=== PATIENT | female | born 1980 | race Caucasian/White ===

== ENCOUNTER 2018-12-16 13:00 | Emergency (ER) | payer MEDICAID ==
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
[2018-12-16] MEDS ORDERED: NORCO 5/325 MG PO ONE (17:15)
[2018-12-16] MEDS ORDERED: NORCO 5/325 MG ONE (17:24)
[2018-12-16 17:58] LABS: BASOPHIL % 0.2 % (0.0-0.4); Basophil (Absolute #) 0.03 (0-0.4); Eosinophil % 1.7 % (0.00-5.0); Eosinophil (Absolute #) 0.21 (0-0.5); Granulocyte Absolute (ANC) 7.93 (1.4-6.9); Granulocytes % 63.7 % (36.0-66.0); Hematocrit 41.3 % (35-47); Hemoglobin 13.7 gm/dl (12.0-16.0); Lymphocyte (Absolute #) 3.12 (1.0-4.6); Lymphocytes % 25.1 % (24.0-44.0); Mean Cell Volume 88.4 fl (78-100); Mean Corpuscular Hemoglobin 29.3 pg (26-32); Mean Corpuscular Hgb Concent. 33.2 g/dl (32-36); Mean Platelet Volume 11.7 fl (6-9.5); Monocyte (Absolute #) 1.16 (0.0-1.3); Monocytes % 9.3 % (0.0-12.0); Platelet Count 217 K/mm3 (150-450); Red Blood Count 4.67 M/mm3 (4.1-5.4); Red Cell Distribution Width 14.5 % (11.5-14.0); White Blood Count 12.5 K/mm3 (4.0-10.5)
[2018-12-16 18:22] VITALS: O2SAT 97
[2018-12-16 18:38] LABS: Appearance SLIGHTLY CLOUDY (CLEAR); Bilirubin NEGATIVE (NEGATIVE); Blood MODERATE Ery/ul (0-5); Epithelial Cells RARE /HPF (FEW); Glucose NEGATIVE (NEGATIVE); Ketones MODERATE (NEGATIVE); Leukocyte Esterase TRACE (NEGATIVE); Mucus SLIGHT /HPF (NEGATIVE); Nitrite NEGATIVE (NEGATIVE); Protein,Urine Dip NEGATIVE (Negative); RBC 0-2 /HPF (0-2); Specific Gravity 1.012 (1.005-1.025); Urobilinogen NEGATIVE mg/dL (0-1)
[2018-12-16 18:39] LABS: Bacteria NONE SEEN /HPF (NEGATIVE)
[2018-12-16] MEDS ORDERED: BACIGUENT PACKET TP ONE (18:53)
[2018-12-16] MEDS ORDERED: Adacel Vial IM ONE ×2 (18:53→18:59)
[2018-12-16] MEDS ORDERED: BACIGUENT PACKET ONE (18:56)
[2018-12-16 19:38] VITALS: BP 144/92; PULSE 84
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
== END 2018-12-16 19:37 | disposition home or self-care (01) ==
LOC: ED 13:00
DX: S09.93XA Unspecified injury of face, initial encounter (principal); V86.95XA Unspecified occupant of 3- or 4- wheeled all-terrain vehicle (ATV) injured in nontraffic accident, initial encounter; S20.319A Abrasion of unspecified front wall of thorax, initial encounter; T79.7XXA Traumatic subcutaneous emphysema, initial encounter; S00.511A Abrasion of lip, initial encounter; S20.219A Contusion of unspecified front wall of thorax, initial encounter; G50.1 Atypical facial pain; Y04.0XXA Assault by unarmed brawl or fight, initial encounter; I10 Essential (primary) hypertension; F41.8 Other specified anxiety disorders; J45.909 Unspecified asthma, uncomplicated
CPT/HCPCS: 36000; 36415; 70450; 70486; 71046; 71250; 72125; 81001; 85025; 87086; 90471; 90715; 99284; A9270-GY

== ENCOUNTER 2022-01-30 14:39 | Emergency (ER) | payer OTHER ==
[2022-01-30 14:54] VITALS: PULSE 122
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
[2022-01-30 15:48] VITALS: BP 142/83
[2022-01-30 16:33] VITALS: O2SAT 96
--- NOTE | 2022-01-30 16:33 | XRAY ---
Indication: Pain following fall. Comparison: None AP pelvis and 2 view right hip demonstrates mild lower lumbar degenerative changes. No other bony, articular, or soft tissue abnormalities.
--- NOTE | 2022-01-30 16:34 | XRAY ---
Indication: Pain following fall. Comparison: None 3 view right knee obtained. No bony, articular, or soft tissue abnormalities.
--- NOTE | 2022-01-30 16:35 | XRAY ---
Indication: Pain following fall. Comparison: None 3 view right ankle obtained. No bony, articular, or soft tissue abnormalities.
== END 2022-01-30 16:59 | disposition left against medical advice (07) ==
LOC: ED 14:39
DX: M25.551 Pain in right hip (principal); M25.561 Pain in right knee; M25.571 Pain in right ankle and joints of right foot; V28.9XXA Unspecified motorcycle rider injured in noncollision transport accident in traffic accident, initial encounter; Y92.410 Unspecified street and highway as the place of occurrence of the external cause; I10 Essential (primary) hypertension; Z79.899 Other long term (current) drug therapy; Z72.0 Tobacco use
CPT/HCPCS: 73502; 73562; 73610; 99283

== ENCOUNTER 2022-02-14 08:53 | Emergency (ER) | payer OTHER ==
[2022-02-14 09:08] VITALS: BP 136/96
[2022-02-14] MEDS ORDERED: Zofran 4 MG/2 ML VIAL ONE (09:22)
[2022-02-14] MEDS ORDERED: Sodium Chloride 0.9% 1000 ML 1,000 ML ONE (09:22)
[2022-02-14] MEDS ORDERED: Hydromorphone 1 mg/ml Injection ONE (09:22)
[2022-02-14] MEDS: Hydromorphone 1 mg/ml Injection IV ONE (09:24)
[2022-02-14] MEDS: Zofran 4 MG/2 ML VIAL IV ONE (09:24)
[2022-02-14] MEDS: Sodium Chloride 0.9% 1000 ML 1,000 ML IV STA (09:24)
--- NOTE | 2022-02-14 09:24 | ERPHSYRPT ---
- History of Present Illness Time Seen by Provider: 02/14/22 09:21 Historian: patient, family Patient Subjective Stated Complaint: PT states "I had a partial hysterectomy in july and this morning when I woke up, my belly really hurt. It feels like pressure on the inside. I also cannot remember when I had a bowel movement last." Triage Nursing Assessment: Pt presented alert and oriented X 3, skin pwd. Pt ambulates with an upright steady gait, able to speak in clear full sentences pt in no apaprent respiratory distress. Physician History: Patient is a 42-year-old white female who presents with severe abdominal pain. It woke her from sleep this morning at approximately 7 PM. She reports the pain is primarily in the suprapubic area and in the left flank she thought initially it was gas but then it got so bad she know she knew it was not flatulence. She cannot remember her last bowel movement she had some sweats with the pain but no fever or chills she has had some nausea and vomited twice. The pain is fairly constant but varies in intensity. Past medical history shows that she has had a partial hysterectomy in July and she had an exploratory for a suspected tubal many years ago. Timing/Duration: today Activities at Onset: sleep Quality: stabbing, throbbing Abdominal Pain Onset Location: LLQ, suprapubic, flank Pain Radiation: LLQ, flank Severity of Pain-Max: severe Severity of Pain-Current: severe Modifying Factors: Improves With: nothing Associated Symptoms: diaphoresis, nausea, vomiting Previous symptoms: no prior history Allergies/Adverse Reactions: Penicillins Allergy (Severe, Verified 12/16/18 18:55) anaphylaxis aspirin Allergy (Unknown, Verified 12/16/18 18:55) Home Medications: Glycopyrrolate 1 mg PO DAILY 01/30/22 [History] Hydroxyzine HCl 25 mg [Atarax 25 mg] 25 mg PO DAILY 01/30/22 [History] Omeprazole 20 mg PO DAILY 01/30/22 [History] Trazodone HCl 100 mg PO DAILY 01/30/22 [History] Hx Tetanus, Diphtheria Vaccination/Date Given: Yes (YES IN THE PAST 10 YEARS) Hx Influenza Vaccination/Date Given: No Hx Pneumococcal Vaccination/Date Given: No Immunizations Up to Date: Yes Travel Risk - International Travel Have you traveled outside of the country in past 3 weeks: No - Coronavirus Screening Are you exhibiting any of the following symptoms?: No Close contact with a COVID-19 positive Pt in past 14-21 Days: No - Vaccine Status Have you recieved a Covid-19 vaccination: Yes 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[employer] - Review of Systems Constitutional: No Fever, No Chills Eyes: No Symptoms Ears, Nose, & Throat: No Symptoms Respiratory: No Cough, No Dyspnea Cardiac: No Chest Pain, No Edema, No Syncope Abdominal/Gastrointestinal: Abdominal Pain, Nausea, Vomiting, No Diarrhea Genitourinary Symptoms: No Dysuria Musculoskeletal: No Back Pain, No Neck Pain Skin: No Rash Neurological: No Dizziness, No Focal Weakness, No Sensory Changes Psychological: No Symptoms Endocrine: No Symptoms All Other Systems: Reviewed and Negative - Past Medical History Pertinent Past Medical History: Yes Neurological History: No Pertinent History ENT History: No Pertinent History Cardiac History: Hypertension Respiratory History: Asthma Endocrine Medical History: No Pertinent History Musculoskeletal History: No Pertinent History GI Medical History: No Pertinent History History: No Pertinent History Psycho-Social History: Bipolar, Depression Female Reproductive Disorders: Endometriosis - Past Surgical History Past Surgical History: Yes Neuro Surgical History: No Pertinent History Cardiac: No Pertinent History Respiratory: No Pertinent History Gastrointestinal: Exploratory Laparoscopy Musculoskeletal: No Pertinent History Female Surgical History: Tubal Ligation Other Surgical History: hysterectomy partial - Social History Smoking Status: Current every day smoker Exposure to second hand smoke: Yes Drug Use: marijuana Patient Lives Alone: No - Female History Hx Last Menstrual Period: partial hysterectomy Hx Now: No - Nursing Vital Signs Nursing Vital Signs: Initial Vital Signs Temperature 97.6 F 02/14/22 09:03 Pulse Rate 96 H 02/14/22 09:03 Respiratory Rate 24 02/14/22 09:03 Blood Pressure 136/96 02/14/22 09:03 O2 Sat by Pulse Oximetry 97 02/14/22 09:03 Pain Scale Pain Intensity 4 - Physical Exam General Appearance: moderate distress, alert Eye Exam: PERRL/EOMI, eyes nml inspection Ears, Nose, Throat Exam: normal ENT inspection, pharynx normal, moist mucous membranes Neck Exam: normal inspection, non-tender, supple, full range of motion Respiratory Exam: normal breath sounds, lungs clear, No respiratory distress Cardiovascular Exam: regular rate/rhythm, normal heart sounds Gastrointestinal/Abdomen Exam: normal bowel sounds, tenderness, guarding, No mass, No rebound Pelvic Exam: not done Rectal Exam: deferred Back Exam: normal inspection, normal range of motion, No CVA tenderness, No vertebral tenderness Extremity Exam: normal inspection, normal range of motion, pelvis stable Neurologic Exam: alert, oriented x 3, cooperative, normal mood/affect, nml cerebellar function, sensation nml, No motor deficits Skin Exam: normal color, warm, dry SpO2 Interpretation: normal SpO2: 97 O2 Delivery: Room Air - Course Nursing assessment & vital signs reviewed: Yes - CT Exams Abdomen/Pelvis CT Interpretation: Other (Radiologist says only moderate stool burden no other abnormalities noted on the CT of the abdomen and pelvis) Ordered Tests: Active Orders 24 hr Category Date Time Status IV Insertion STAT Care 02/14/22 09:17 Active ABDOMEN AND PELVIS W/0 CONTRAS [CT] Stat Exams 02/14/22 09:18 Completed AMYLASE Stat Lab 02/14/22 09:25 Completed CBC W DIFF Stat Lab 02/14/22 09:25 Completed CMP Stat Lab 02/14/22 09:25 Completed LIPASE Stat Lab 02/14/22 09:25 Completed Lactic Acid Stat Lab 02/14/22 09:17 Completed UA W/RFX CULTURE Stat Lab 02/14/22 10:28 Completed Urine Triage Profile Stat Lab 02/14/22 10:28 Ordered Medication Summary Discontinued Medications Generic Name Dose Route Start Last Admin Trade Name Freq PRN Reason Stop Dose Admin Hydromorphone HCl 1 mg 02/14/22 09:17 02/14/22 09:24 Hydromorphone 1 Mg/1ml Inj 1 Mg/Ml Syringe IV 02/14/22 09:18 1 mg STAT ONE Administration Hydromorphone HCl Confirm 02/14/22 09:22 Hydromorphone 1 Mg/1ml Inj 1 Mg/Ml Syringe Administered 02/14/22 09:23 Dose 1 mg .ROUTE .STK-MED ONE Sodium Chloride 1,000 mls @ 999 mls/hr 02/14/22 09:17 02/14/22 09:24 Sodium Chloride 0.9% 1000 Ml IV 02/14/22 10:17 999 mls/hr .Q1H1M STA Administration Sodium Chloride Confirm 02/14/22 09:22 Sodium Chloride 0.9% 1000 Ml Administered 02/14/22 09:23 Dose 1,000 mls @ ud .ROUTE .STK-MED ONE Ondansetron HCl 4 mg 02/14/22 09:17 02/14/22 09:24 Ondansetron Hcl 4 Mg/2 Ml Vial IV 02/14/22 09:18 4 mg STAT ONE Administration Ondansetron HCl Confirm 02/14/22 09:22 Ondansetron Hcl 4 Mg/2 Ml Vial Administered 02/14/22 09:23 Dose 4 mg .ROUTE .STK-MED ONE Lab/Rad Data: Laboratory Result Diagrams 02/14/22 09:25 02/14/22 09:25 Laboratory Results 02/14/22 02/14/22 02/14/22 Range/Units 10:28 09:25 09:25 WBC 10.4 (4.0-10.5) x10^3/uL RBC 4.57 (4.1-5.4) x10^6/uL Hgb 12.7 (12.0-16.0) g/dL Hct 39.1 (35-47) % MCV 85.6 (78-100) fL MCH 27.8 (26-32) pg MCHC 32.5 (32-36) g/dL RDW 14.9 H (11.5-14.0) % Plt Count 278 (150-450) x10^3/uL MPV 10.2 (7.5-11.0) fL Gran % 67.5 H (36.0-66.0) % Immature Gran % (Auto) 0.2 (0.00-0.4) % Nucleat RBC Rel Count 0.0 (0.00-0.1) % Eos # (Auto) 0.11 (0-0.5) x10^3/uL Immature Gran # (Auto) 0.02 (0.00-0.03) x10^3u/L Absolute Lymphs (auto) 2.32 (1.0-4.6) x10^3/uL Absolute Monos (auto) 0.84 (0.0-1.3) x10^3/uL Absolute Nucleated RBC 0.00 (0.00-0.01) x10^3u/L Lymphocytes % 22.4 L (24.0-44.0) % Monocytes % 8.1 (0.0-12.0) % Eosinophils % 1.1 (0.00-5.0) % Basophils % 0.7 (0.0-0.4) % Absolute Granulocytes 7.02 H (1.4-6.9) x10^3/uL Basophils # 0.07 (0-0.4) x10^3/uL Sodium 135 L (137-145) mmol/L Potassium 3.8 (3.5-5.1) mmol/L Chloride 106 (98-107) mmol/L Carbon Dioxide 24 (22-30) mmol/L Anion Gap 9.0 (5-15) MEQ/L BUN 12 (7-17) mg/dL Creatinine 0.84 (0.52-1.04) mg/dL Estimated GFR > 60.0 ML/MIN Glucose 76 (74-106) mg/dL Lactic Acid (0.4-2.0) Calcium 8.9 (8.4-10.2) mg/dL Total Bilirubin 0.20 (0.2-1.3) mg/dL AST 22 (14-36) U/L ALT 18 (0-35) U/L Alkaline Phosphatase 68 (38-126) U/L Serum Total Protein 6.9 (6.3-8.2) g/dL Albumin 3.6 (3.5-5.0) g/dL Amylase 68 (30-110) U/L Lipase 39 (23-300) U/L Urinalys Dipstick Clnc MAIN LAB Urine Color YELLOW (YELLOW) Urine Appearance CLEAR (CLEAR) Urine pH 5.5 (5-6) Ur Specific Girard >=1.030 (1.005-1.025) POC Urine Protein Conf NEGATIVE (Negative) Urine Ketones NEGATIVE (NEGATIVE) Urine Nitrite NEGATIVE (NEGATIVE) Urine Bilirubin SMALL (NEGATIVE) Urine Urobilinogen 0.2 (0-1) mg/dL Urine Leukocytes NEGATIVE (NEGATIVE) Urine WBC (Auto) 0-2 (0-5) /HPF Urine RBC (Auto) NONE (0-2) /HPF U Hyaline Cast (Auto) 0-2 (0-2) /LPF U Epithel Cells (Auto) RARE (FEW) /HPF Urine Bacteria (Auto) NONE SEEN (NEGATIVE) /HPF Urine RBC NEGATIVE (0-5) August/ul Urine Mucus (Auto) MANY (NEGATIVE) /HPF Ur Culture Indicated? NO Urine Glucose NEGATIVE (NEGATIVE) mg/dL 02/14/22 Range/Units 09:17 WBC (4.0-10.5) x10^3/uL RBC (4.1-5.4) x10^6/uL Hgb (12.0-16.0) g/dL Hct (35-47) % MCV (78-100) fL MCH (26-32) pg MCHC (32-36) g/dL RDW (11.5-14.0) % Plt Count (150-450) x10^3/uL MPV (7.5-11.0) fL Gran % (36.0-66.0) % Immature Gran % (Auto) (0.00-0.4) % Nucleat RBC Rel Count (0.00-0.1) % Eos # (Auto) (0-0.5) x10^3/uL Immature Gran # (Auto) (0.00-0.03) x10^3u/L Absolute Lymphs (auto) (1.0-4.6) x10^3/uL Absolute Monos (auto) (0.0-1.3) x10^3/uL Absolute Nucleated RBC (0.00-0.01) x10^3u/L Lymphocytes % (24.0-44.0) % Monocytes % (0.0-12.0) % Eosinophils % (0.00-5.0) % Basophils % (0.0-0.4) % Absolute Granulocytes (1.4-6.9) x10^3/uL Basophils # (0-0.4) x10^3/uL Sodium (137-145) mmol/L Potassium (3.5-5.1) mmol/L Chloride (98-107) mmol/L Carbon Dioxide (22-30) mmol/L Anion Gap (5-15) MEQ/L BUN (7-17) mg/dL Creatinine (0.52-1.04) mg/dL Estimated GFR ML/MIN Glucose (74-106) mg/dL Lactic Acid 1.2 (0.4-2.0) Calcium (8.4-10.2) mg/dL Total Bilirubin (0.2-1.3) mg/dL AST (14-36) U/L ALT (0-35) U/L Alkaline Phosphatase (38-126) U/L Serum Total Protein (6.3-8.2) g/dL Albumin (3.5-5.0) g/dL Amylase (30-110) U/L Lipase (23-300) U/L Urinalys Dipstick Clnc Urine Color (YELLOW) Urine Appearance (CLEAR) Urine pH (5-6) Ur Specific Girard (1.005-1.025) POC Urine Protein Conf (Negative) Urine Ketones (NEGATIVE) Urine Nitrite (NEGATIVE) Urine Bilirubin (NEGATIVE) Urine Urobilinogen (0-1) mg/dL Urine Leukocytes (NEGATIVE) Urine WBC (Auto) (0-5) /HPF Urine RBC (Auto) (0-2) /HPF U Hyaline Cast (Auto) (0-2) /LPF U Epithel Cells (Auto) (FEW) /HPF Urine Bacteria (Auto) (NEGATIVE) /HPF Urine RBC (0-5) August/ul Urine Mucus (Auto) (NEGATIVE) /HPF Ur Culture Indicated? Urine Glucose (NEGATIVE) mg/dL - Progress Progress: improved Progress Note: 02/14/22 10:50 Work-up essentially negative other than constipation. - Departure Departure Disposition: Home Clinical Impression: Abdominal pain, Constipation Condition: Stable Critical Care Time: No Referrals: MILTON MATHEWS NP [Primary Care Provider] - Follow up/PCP as directed Instructions: Severe Abdominal Pain, Adult (DC) Prescriptions: Tramadol HCl 50 mg [Ultram 50 mg] 50 mg PO Q6H 3 Days #12 tablet
[2022-02-14 09:33] LABS: Absolute Neutrophil Ct (ANC) 7.02 x10^3/uL (1.4-6.9); Basophil (Absolute #) 0.07 x10^3/uL (0-0.4); Eosinophil % 1.1 % (0.00-5.0); Eosinophil (Absolute #) 0.11 x10^3/uL (0-0.5); Hematocrit 39.1 % (35-47); Hemoglobin 12.7 g/dL (12.0-16.0); Lymphocyte (Absolute #) 2.32 x10^3/uL (1.0-4.6); Lymphocytes % 22.4 % (24.0-44.0); Mean Cell Volume 85.6 fL (78-100); Mean Corpuscular Hemoglobin 27.8 pg (26-32); Mean Corpuscular Hgb Concent. 32.5 g/dL (32-36); Mean Platelet Volume 10.2 fL (7.5-11.0); Monocyte (Absolute #) 0.84 x10^3/uL (0.0-1.3); Monocytes % 8.1 % (0.0-12.0); Neutrophil % 67.5 % (36.0-66.0); Platelet Count 278 x10^3/uL (150-450); Red Blood Count 4.57 x10^6/uL (4.1-5.4); Red Cell Distribution Width 14.9 % (11.5-14.0); White Blood Count 10.4 x10^3/uL (4.0-10.5)
[2022-02-14 09:46] LABS: ALBUMIN 3.6 g/dL (3.5-5.0); ALKALINE PHOSPHATASE 68 U/L (38-126); AMYLASE 68 U/L (30-110); BLOOD UREA NITROGEN 12 mg/dL (7-17); CHLORIDE 106 mmol/L (98-107); Calcium 8.9 mg/dL (8.4-10.2); Carbon Dioxide 24 mmol/L (22-30); Creatinine 1 0.84 mg/dL (0.52-1.04); EST GLOMERULAR FILTRATION RATE > 60.0 ML/MIN; Glucose 76 mg/dL (74-106); LIPASE 39 U/L (23-300); Potassium 3.8 mmol/L (3.5-5.1); SGOT/AST 22 U/L (14-36); SGPT/ALT 18 U/L (0-35); SODIUM 135 mmol/L (137-145); Total Protein 6.9 g/dL (6.3-8.2)
--- NOTE | 2022-02-14 10:05 | XRAY ---
Indication: Left flank pain and nausea. Multiple contiguous axial images obtained through the abdomen and pelvis without contrast. Comparison: June 03, 2007 Lung bases demonstrate minimal dependent atelectasis. No infiltrate or effusion. Heart not enlarged. Noncontrasted stomach and bowel loops appear nonobstructed. Appendix not visualized. There is mild diffuse scattered colonic fecal debris throughout. Interval hysterectomy. No free fluid/air. Remaining liver, gallbladder, pancreas, spleen, adrenal glands, kidneys, ureters, and bladder are unremarkable for noncontrast exam. Minimal aortic calcifications without AAA. Osseous structures intact. No ventral or inguinal hernias. Impression: 1. Mild diffuse fecal stasis. 2. Remaining CT abdomen/pelvis without contrast exam is negative.
[2022-02-14 10:07] VITALS: PULSE 71
[2022-02-14 10:37] LABS: Epithelial Cells RARE /HPF (FEW); Hyaline Casts 0-2 /LPF (0-2); Mucus MANY /HPF (NEGATIVE); WBC 0-2 /HPF (0-5)
[2022-02-14 10:43] LABS: Appearance CLEAR (CLEAR); Bilirubin SMALL (NEGATIVE); Glucose NEGATIVE (NEGATIVE); Ketones NEGATIVE (NEGATIVE)
[2022-02-14 10:44] LABS: Dipstick done @ ? MAIN LAB; Nitrite NEGATIVE (NEGATIVE); Ph 5.5 (5-6); Protein,Urine Dip NEGATIVE (Negative); RBC NEGATIVE Ery/ul (0-5); Specific Gravity >=1.030 (1.005-1.025); Urobilinogen 0.2 mg/dL (0-1)
[2022-02-14 10:46] LABS: Bacteria NONE SEEN /HPF (NEGATIVE); Urine Cultured Indicated? NO
[2022-02-14 10:54] VITALS: O2SAT 97
[2022-02-14 10:55] LABS: Barbiturate,Urine NEGATIVE (NEGATIVE); Benzodiazepine,Urine NEGATIVE (NEGATIVE); Cocaine,Urine NEGATIVE (NEGATIVE); Methadone,Urine NEGATIVE (NEGATIVE); Opiate,Urine POSITIVE (NEGATIVE); PCP,Urine NEGATIVE (NEGATIVE); THC,Urine POSITIVE (NEGATIVE)
[2022-02-14 11:29] LABS: Amphetamine,Urine POSITIVE (NEGATIVE)
== END 2022-02-14 11:05 | disposition home or self-care (01) ==
LOC: ED 08:53
DX: K59.00 Constipation, unspecified (principal); R10.32 Left lower quadrant pain; R10.2 Pelvic and perineal pain; R11.2 Nausea with vomiting, unspecified; I10 Essential (primary) hypertension; Z72.0 Tobacco use; Z79.891 Long term (current) use of opiate analgesic; Z79.899 Other long term (current) drug therapy
CPT/HCPCS: 36000; 36415; 74176; 80053; 80307; 81015; 82150; 83605; 83690; 85025; 96360; 96374; 96375; 99284; J1170; J2405

== ENCOUNTER 2022-02-27 19:24 | Emergency (ER) | payer OTHER | END 2022-02-27 21:23 | disposition left against medical advice (07) | LOC: ED 19:24 | DX: Z53.21 Procedure and treatment not carried out due to patient leaving prior to being seen by health care provider (principal) ==

== ENCOUNTER 2023-08-12 11:27 | Day surgery (SDC) | payer OTHER ==
--- NOTE | 2023-08-12 10:20 | HP ---
DATE OF SURGERY: 08/12/2023 HISTORY OF PRESENT ILLNESS: The patient is a 43-year-old female with upper abdominal pain, occasional nausea and vomiting worse with greasy food going on for a few weeks. Ultrasound negative. HIDA 5% ejection fraction. PAST MEDICAL HISTORY: Asthma, depression, arthritis, bipolar, history of heartburn. PAST SURGICAL HISTORY: Partial hysterectomy. Exploratory laparotomy found blood in her abdomen reportedly back in 2004. Bilateral tubal ligation. MEDICATIONS: Bupropion, omeprazole, hydroxyzine, loratadine, trazodone, glycopyrrolate. ALLERGIES: PENICILLIN. ASPIRIN. FAMILY HISTORY: Negative in regards to this problem. SOCIAL HISTORY: Smoker, occasional alcohol use. REVIEW OF SYSTEMS: Twelve systems reviewed. No chest pain or palpitations. Other systems negative or noncontributory as above and per preadmission questionnaire. PHYSICAL EXAMINATION: Height 5'5". BMI 28.6. GENERAL: No acute distress. HEENT: Sclerae nonicteric. EOMI. Oral mucous membranes moist. NECK: No JVD. CHEST: Equal excursion. Breath sounds symmetrical. CVS: Regular rate and rhythm. ABDOMEN: Soft. No peritoneal signs. EXTREMITIES: No cyanosis or edema. NEURO: Alert, oriented, moving extremities symmetrically. No gross motor deficits noted. PSYCH: Appropriate mood and affect. SKIN: Dry. IMPRESSION: Acute exacerbation chronic cholecystitis, symptomatic biliary dyskinesia. I recommend cholecystectomy. Risks and benefits explained in detail including but not limited to bleeding or infection, risk of trocar injury or hernia, risk of bile leak, bile duct injury, retained stone or sludge possibly requiring further procedure either open or ERCP, general risk of anesthesia, deep venous thrombosis, pulmonary embolism, pneumonia, perioperative risk of aches, pains, bloating, constipation and/or loose stools possibly even chronic in nature. Will proceed with laparoscopic cholecystectomy possible open as an outpatient. She had prior laparotomy, high probability of possible open procedure. Otherwise continue medications for asthma, arthritis, bipolar and depression as an outpatient, continue medical management. Will proceed with laparoscopic cholecystectomy possible open when OR time is available.
[~2023-08-12 11:27] MED LIST: Sensorcaine 0.25% 10 ML ONE
[2023-08-12 11:45] VITALS: RESP 18
[2023-08-12] MEDS ORDERED: Levofloxacin 500MG/100ML D5W 500 MG/100 ML BAG IV SCH (11:45)
[2023-08-12] MEDS ORDERED: CLINDAMYCIN-D5W 900 MG/50 ML*** 900 MG/50 ML BAG IV ONE (11:49)
[2023-08-12] MEDS ORDERED: Lactated Ringers 1,000 ML IV ONE (11:49)
[2023-08-12] MEDS ORDERED: Levofloxacin 500MG/100ML D5W 500 MG/100 ML BAG IV ONE (11:49)
[2023-08-12] MEDS ORDERED: Lactated Ringers 1,000 ML IV SCH (12:00)
[2023-08-12] MEDS ORDERED: CLINDAMYCIN-D5W 900 MG/50 ML*** 900 MG/50 ML BAG IV SCH (12:00)
[2023-08-12] MEDS ORDERED: Xylocaine-Mpf 2% 5 Ml Vial ONE (13:20)
[2023-08-12] MEDS ORDERED: BRIDION 200MG/2ML IV ONE (13:20)
[2023-08-12] MEDS ORDERED: Zemuron 100 MG/10 ML ONE (13:20)
[2023-08-12] MEDS ORDERED: SUBLIMAZE 100 MCG/2 ML ONE ×3 (13:20→14:51)
[2023-08-12] MEDS ORDERED: TORAdol 30 mg Injection ONE (13:20)
[2023-08-12] MEDS ORDERED: Zofran 4 MG/2 ML VIAL ONE ×2 (13:20→14:55)
[2023-08-12] MEDS ORDERED: Versed 2 MG/2 ML Injection ONE (13:20)
[2023-08-12] MEDS ORDERED: Decadron 4 MG INJ ONE (13:20)
[2023-08-12] MEDS ORDERED: DIPRIVAN 200 MG/20 ML IV ONE (13:20)
[2023-08-12] MEDS ORDERED: OFIRMEV 100 ML IV ONE (13:59)
[2023-08-12] MEDS ORDERED: LOPRESSOR INJECTION IV ONE (14:12)
[2023-08-12] MEDS ORDERED: Compazine 10 MG/2 ML ONE (15:15)
--- NOTE | 2023-08-12 15:25 | OP ---
SURGERY DATE/TIME: 08/12/2023 1344 PREOPERATIVE DIAGNOSIS: Acute exacerbation of chronic cholecystitis, symptomatic biliary dyskinesia. POSTOPERATIVE DIAGNOSIS: Acute exacerbation of chronic cholecystitis, symptomatic biliary dyskinesia. PROCEDURE: Laparoscopic cholecystectomy. SURGEON: Dr. Jigar Garcia. ANESTHESIA: General. ESTIMATED BLOOD LOSS: Minimal. INDICATIONS: As noted above. Risks and benefits explained in detail but not limited to and consent obtained. DESCRIPTION OF PROCEDURE AND FINDINGS: The patient was taken to the operating room. General anesthesia induced. Abdomen prepped and draped in usual sterile fashion. After official time out and no disagreement with planned procedure, a transverse incision made in the supraumbilical area. Fascia grasped, pulled upward. Veress needle inserted and tested with saline. Pneumoperitoneum accomplished insufflating opening pressure of 0-15. A 5 mm right upper quadrant bladeless port and camera were inserted without difficulty. It should be noted that she had vertical midline on initial imaging just a little bit to the right mid abdomen prior scar. There is no evidence of any scar tissue in this area. This incision was made a little bigger under direct vision of the camera and 10 mm port placed in this area. There was some omental adhesions just a little bit superior medial to this area. After another 5 mm right upper quadrant port was placed, sharp lysis of film adhesions allowed better mobilization and came up just to the right of the umbilical. There was no bowel or viscera here. There were admissions in the omental area. A 5 mm port is placed in the epigastrium. The gallbladder is grasped. It had some chronic inflammation dissected posterior lateral to anterior fashion. The cystic duct and infundibulum carefully well skeletonized until critical view obtained anteriorly and posteriorly. Once this is accomplished, the cystic duct and cystic artery clipped x3 and divided in the usual fashion. The gallbladder is slowly and carefully dissected free from its dense attachments to the liver bed clipping additional oozing side branches off the cystic artery and cystic vein directly on the gallbladder wall as necessary. Just prior to releasing from final attachments to the anterior edge of the liver, the liver bed re-inspected. Clips noted in place in the cystic duct and cystic artery stumps. No signs of any active bleeding or bile leakage. It was felt there is no benefit of drain placement. The gallbladder was released from final attachments to the anterior edge of the liver where it was pulled up and out the 10/11 port site and passed off. The fascial defect was closed with puncture closure device with #1 Vicryl. Liver bed re-inspected. Clips noted to be in place cystic duct and cystic artery stumps. No signs of any active bleeding or bile leakage. It was felt there was no benefit in drain placement. At this point copious amount of irrigation accomplished lateral to the liver irrigating clear. Clips are noted in place cystic duct and cystic artery stumps. At this point pneumoperitoneum decompressed. The wound irrigated out. Skin incision closed with 4-0 Vicryl. Steri-Strips and sterile dressing applied. The patient tolerated the procedure well. There were no immediate complications. Findings discussed with the family out in the waiting area.
[2023-08-12 15:36] VITALS: O2SAT 97
[2023-08-12 15:51] VITALS: BP 148/92; PULSE 67; TEMP 97.8
== END 2023-08-12 15:55 | disposition home or self-care (01) ==
LOC: SDC 11:27
PROVIDERS: ATTEND Surgery
DX: K81.1 Chronic cholecystitis (principal); K82.8 Other specified diseases of gallbladder
CPT/HCPCS: J1100; J1885; J1956; J2250; J2405; J2704; J3010

== ENCOUNTER 2023-08-13 04:07 | Emergency (ER) | payer OTHER ==
[2023-08-13 04:19] VITALS: TEMP 98.2
[2023-08-13] MEDS ORDERED: Compazine 10 MG/2 ML IV ONE (04:26)
[2023-08-13] MEDS ORDERED: Sodium Chloride 0.9% 1000 ML 1,000 ML IV STA ×2 (04:26→05:40)
[2023-08-13] MEDS ORDERED: Hydromorphone 1 mg/ml Injection IV ONE (04:26)
--- NOTE | 2023-08-13 04:27 | ERPHSYRPT ---
- History of Present Illness Time Seen by Provider: 08/13/23 04:26 Historian: patient Exam Limitations: no limitations Patient Subjective Stated Complaint: Pt states "Dr. Espinoza took my gallbladder out today at 4 pm and I have been vomiting ever since. I cannot keep any of my meds down and I feel terrible." Triage Nursing Assessment: Pt presented alert and oriented X 3, skin pwd. PT ambulates with an upright steady gait, able to speak in clear full sentences. Pt moaning. 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 Since her surgery she has had generalized sharp pain that goes into her back and associated with vomiting. She states she cannot hold down any liquids, nausea or pain medicine. Patient is status post bilateral tubal ligation in the past as well as status post partial hysterectomy in the past. Patient is a daily smoker of cigarettes. Patient has a history of gastroesophageal reflux disease, hypertension, asthma, bipolar disorder, depression and endometriosis. Timing/Duration: yesterday Activities at Onset: none Quality: sharpness Abdominal Pain Onset Location: generalized abdomen Pain Radiation: back Severity of Pain-Max: moderate Severity of Pain-Current: moderate Modifying Factors: Improves With: vomiting Associated Symptoms: back, loss of appetite, nausea, vomiting, weakness, No chest pain, No diarrhea, No shortness of breath Previous symptoms: no prior history, recent hospitalization, recently treated Allergies/Adverse Reactions: Penicillins Allergy (Severe, Verified 08/02/23 13:00) anaphylaxis aspirin Allergy (Unknown, Verified 08/02/23 13:00) Home Medications: Glycopyrrolate 1 mg PO DAILY 01/30/22 [History] Hydroxyzine HCl 25 mg [Atarax 25 mg] 25 mg PO DAILY 01/30/22 [History] Omeprazole 20 mg PO BID 01/30/22 [History] Trazodone HCl 100 mg PO DAILY 01/30/22 [History] Bupropion HCl Xl 150 mg [Wellbutrin XL 150 MG] 150 mg PO DAILY 07/25/23 [History] Loratadine 10 mg [Claritin 10 mg] 10 mg PO DAILY 07/25/23 [History] Albuterol Common Canister [Ventolin Common Canister] 2 puff IH TID 08/02/23 [History] Hx Tetanus, Diphtheria Vaccination/Date Given: Yes (YES IN THE PAST 10 YEARS) Hx Influenza Vaccination/Date Given: No Hx Pneumococcal Vaccination/Date Given: No Immunizations Up to Date: No Travel Risk - International Travel Have you traveled outside of the country in past 3 weeks: No - Coronavirus Screening Are you exhibiting any of the following symptoms?: Yes Symptoms: Vomiting/Diarrhea Close contact with a COVID-19 positive Pt in past 14-21 Days: No - Vaccine Status Have you recieved a Covid-19 vaccination: Yes 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: [employer] - Review of Systems Constitutional: Weakness Eyes: No Symptoms Ears, Nose, & Throat: No Symptoms Respiratory: No Symptoms Cardiac: No Symptoms Abdominal/Gastrointestinal: Abdominal Pain, Nausea, Vomiting, Appetite Changes, No Constipation Genitourinary Symptoms: No Symptoms Musculoskeletal: No Symptoms Skin: No Symptoms Neurological: No Symptoms Psychological: No Symptoms Endocrine: No Symptoms Hematologic/Lymphatic: No Symptoms Immunological/Allergic: No Symptoms All Other Systems: Reviewed and Negative - Past Medical History Pertinent Past Medical History: Yes Neurological History: No Pertinent History ENT History: No Pertinent History Cardiac History: Hypertension Respiratory History: Asthma Endocrine Medical History: No Pertinent History Musculoskeletal History: No Pertinent History GI Medical History: No Pertinent History History: No Pertinent History Psycho-Social History: Bipolar, Depression Female Reproductive Disorders: Endometriosis - Past Surgical History Past Surgical History: Yes Neuro Surgical History: No Pertinent History Cardiac: No Pertinent History Respiratory: No Pertinent History Gastrointestinal: Cholecystectomy, Exploratory Laparoscopy Musculoskeletal: No Pertinent History Female Surgical History: Tubal Ligation Other Surgical History: hysterectomy partial - Social History Smoking Status: Current every day smoker How long have you smoked: 30 years Exposure to second hand smoke: Yes Drug Use: marijuana Patient Lives Alone: No - Female History Hx Last Menstrual Period: partial hysterectomy Hx Now: No - Nursing Vital Signs Nursing Vital Signs: Initial Vital Signs Temperature 98.2 F 08/13/23 04:11 Pulse Rate 98 H 08/13/23 04:11 Respiratory Rate 22 08/13/23 04:11 Blood Pressure 200/120 08/13/23 04:11 O2 Sat by Pulse Oximetry 99 08/13/23 04:11 Pain Scale Pain Intensity 2 - Physical Exam General Appearance: mild distress, alert, anxiety Eye Exam: PERRL/EOMI, eyes nml inspection Ears, Nose, Throat Exam: normal ENT inspection, moist mucous membranes Neck Exam: normal inspection, non-tender, supple, full range of motion Respiratory Exam: normal breath sounds, lungs clear, airway intact, No chest tenderness, No respiratory distress Cardiovascular Exam: regular rate/rhythm, normal heart sounds, normal peripheral pulses Gastrointestinal/Abdomen Exam: soft, normal bowel sounds, tenderness, guarding, rebound Pelvic Exam: not done Rectal Exam: not done Back Exam: normal inspection, normal range of motion, No CVA tenderness, No vertebral tenderness Extremity Exam: normal inspection, normal range of motion, pelvis stable Neurologic Exam: alert, oriented x 3, cooperative, protective signal operator II-XII nml as tested, normal mood/affect, nml cerebellar function, nml station & gait, sensation nml Skin Exam: normal color, warm, dry Lymphatic Exam: No adenopathy SpO2 Interpretation: normal SpO2: 99 O2 Delivery: Room Air - Course Nursing assessment & vital signs reviewed: Yes Ordered Tests: Active Orders 24 hr Category Date Time Status IV Insertion STAT Care 08/13/23 04:26 Active ABDOMEN AND PELVIS W/0 CONTRAS [CT] Stat Exams 08/13/23 04:27 Completed AMYLASE Stat Lab 08/13/23 05:05 Completed CBC W DIFF Stat Lab 08/13/23 05:05 Completed CMP Stat Lab 08/13/23 05:05 Completed LIPASE Stat Lab 08/13/23 05:05 Completed UA W/RFX UR CULTURE Stat Lab 08/13/23 04:27 Ordered Medication Summary Generic Name Dose Route Start Last Admin Trade Name Freq PRN Reason Stop Dose Admin Sodium Chloride 1,000 mls @ 999 mls/hr 08/13/23 05:40 Sodium Chloride 0.9% 1000 Ml IV 08/13/23 06:40 .Q1H1M STA Discontinued Medications Generic Name Dose Route Start Last Admin Trade Name Freq PRN Reason Stop Dose Admin Hydromorphone HCl 1 mg 08/13/23 04:26 08/13/23 04:45 Hydromorphone 1 Mg/1ml Inj IV 08/13/23 04:27 1 mg STAT ONE Administration Hydromorphone HCl Confirm 08/13/23 04:37 Hydromorphone 1 Mg/1ml Inj Administered 08/13/23 04:38 Dose 1 mg .ROUTE .STK-MED ONE Sodium Chloride 1,000 mls @ 999 mls/hr 08/13/23 04:26 08/13/23 04:44 Sodium Chloride 0.9% 1000 Ml IV 08/13/23 05:26 999 mls/hr .Q1H1M STA Administration Sodium Chloride Confirm 08/13/23 04:37 Sodium Chloride 0.9% 1000 Ml Administered 08/13/23 04:38 Dose 1,000 mls @ ud .ROUTE .STK-MED ONE Sodium Chloride Confirm 08/13/23 05:43 Sodium Chloride 0.9% 1000 Ml Administered 08/13/23 05:44 Dose 1,000 mls @ ud .ROUTE .STK-MED ONE Prochlorperazine Edisylate 5 mg 08/13/23 04:26 08/13/23 04:44 Prochlorperazine Edisylate 10 Mg/2 Ml Vial IV 08/13/23 04:27 5 mg STAT ONE Administration Prochlorperazine Edisylate Confirm 08/13/23 04:37 Prochlorperazine Edisylate 10 Mg/2 Ml Vial Administered 08/13/23 04:38 Dose 10 mg .ROUTE .STK-MED ONE Lab/Rad Data: Laboratory Result Diagrams 08/13/23 05:05 08/13/23 05:05 Laboratory Results 08/13/23 08/13/23 Range/Units 05:05 05:05 WBC 22.5 H (4.0-10.5) x10^3/uL RBC 5.54 H (4.1-5.4) x10^6/uL Hgb 15.9 (12.0-16.0) g/dL Hct 48.0 H (35-47) % MCV 86.6 (78-100) fL MCH 28.7 (26-32) pg MCHC 33.1 (32-36) g/dL RDW 13.0 (11.5-14.0) % Plt Count 349 (150-450) x10^3/uL MPV 10.0 (7.5-11.0) fL Gran % 89.4 H (36.0-66.0) % Immature Gran % (Auto) 0.4 (0.00-0.4) % Nucleat RBC Rel Count 0.0 (0.00-0.1) % Eos # (Auto) 0 (0-0.5) x10^3/uL Immature Gran # (Auto) 0.10 H (0.00-0.03) x10^3u/L Absolute Lymphs (auto) 1.46 (1.0-4.6) x10^3/uL Absolute Monos (auto) 0.78 (0.0-1.3) x10^3/uL Absolute Nucleated RBC 0.00 (0.00-0.01) x10^3u/L Lymphocytes % 6.5 L (24.0-44.0) % Monocytes % 3.5 (0.0-12.0) % Eosinophils % 0.0 (0.00-5.0) % Basophils % 0.2 (0.0-0.4) % Absolute Granulocytes 20.10 H (1.4-6.9) x10^3/uL Basophils # 0.04 (0-0.4) x10^3/uL Sodium 132 L (137-145) mmol/L Potassium 3.5 (3.5-5.1) mmol/L Chloride 101 (98-107) mmol/L Carbon Dioxide 22 (22-30) mmol/L Anion Gap 12.8 (5-15) MEQ/L BUN 15 (7-17) mg/dL Creatinine 0.57 (0.52-1.04) mg/dL Estimated GFR 117.0 ML/MIN Glucose 142 H (74-106) mg/dL Calcium 10.0 (8.4-10.2) mg/dL Total Bilirubin 0.60 (0.2-1.3) mg/dL AST 38 H (14-36) U/L ALT 36 H (0-35) U/L Alkaline Phosphatase 91 (38-126) U/L Serum Total Protein 9.3 H (6.3-8.2) g/dL Albumin 4.9 (3.5-5.0) g/dL Amylase 83 (30-110) U/L Lipase 123 (23-300) U/L Slides for Path Review YES - Progress Progress: improved, pain not gone completely, re-examined Progress Note: 08/13/23 04:56 This patient's medical issue is 1 of at least moderate complexity and possibly high complexity. The level of complexity and the workup performed is based on review of the patient's past medical history, review of the patient's medication list, reviewed patient's drug allergy list, history present illness and physical findings on examination. Workup in this patient includes placement of intravenous line, infusion of 1 L normal saline solution, infusion of 1 mg intravenous Dilaudid, infusion of 5 mg intravenous Compazine, amylase, lipase, CBC, CMP, urinalysis, CT scan of the abdomen pelvis without contrast. Indep endent, additional history was obtained from the patient's spouse secondary to the patient being in significant discomfort. 08/13/23 05:51 I interpreted the laboratory data results. The patient does have a significant leukocytosis with a left shift. Likely this is secondary to post procedure and multiple episodes of vomiting. The remainder of the laboratory data results are expected postoperative cholecystectomy laboratory findings. The total bilirubin is normal as is the alkaline phosphatase with mildly elevated transaminases. CT scan of the abdomen pelvis was interpreted by the radiologist and I reviewed the impression. The impression shows likely postoperative pneumoperitoneum. There is no evidence of a fluid collection. No evidence of injury to any intra- abdominal or intrapelvic organ at this time. 08/13/23 06:34 We are still waiting for the urinalysis results. The patient just provided a urine specimen. Clinically, the patient states she is feeling much better. She does not have the pain or the nausea. I do want her to receive a second liter of normal saline solution. If the patient does have a urinary tract infection we will place her on antibiotics. If the lab results have not returned by the time my shift ends arrival have the oncoming physician follow-up with that lab and make final determination whether the patient needs antibiotics or not. Counseled pt/family regarding: lab results, diagnosis, rad results Medical Desision Making - Independent Historian Additional History obtained from: Spouse - Diagnostic Testing Diagnostic test were ordered, analyzed, and reviewed by me: Yes Radiological Interpretation: Reviewed by me, Teleradiologist Report - Departure Departure Disposition: Home Clinical Impression: Postoperative pain, Postoperative vomiting Condition: Stable Critical Care Time: No Referrals: MILTON MATHEWS NP [Primary Care Provider] - Follow up/PCP as directed Additional Instructions: Drink plenty of clear liquids before advancing diet. Avoid fatty greasy spicy foods. Continue your postoperative instructions. Follow-up with your general surgeon at the scheduled date and time.
[2023-08-13] MEDS ORDERED: Hydromorphone 1 mg/ml Injection ONE (04:37)
[2023-08-13] MEDS ORDERED: Compazine 10 MG/2 ML ONE (04:37)
[2023-08-13] MEDS ORDERED: Sodium Chloride 0.9% 1000 ML 1,000 ML ONE ×2 (04:37→05:43)
[2023-08-13 05:12] LABS: BASOPHIL % 0.2 % (0.0-0.4); Basophil (Absolute #) 0.04 x10^3/uL (0-0.4); Eosinophil (Absolute #) 0 x10^3/uL (0-0.5); Hemoglobin 15.9 g/dL (12.0-16.0); IMMATURE GRAN % 0.4 % (0.00-0.4); Lymphocyte (Absolute #) 1.46 x10^3/uL (1.0-4.6); Lymphocytes % 6.5 % (24.0-44.0); Mean Cell Volume 86.6 fL (78-100); Mean Corpuscular Hemoglobin 28.7 pg (26-32); Mean Corpuscular Hgb Concent. 33.1 g/dL (32-36); Monocyte (Absolute #) 0.78 x10^3/uL (0.0-1.3); Monocytes % 3.5 % (0.0-12.0); Neutrophil % 89.4 % (36.0-66.0); Platelet Count 349 x10^3/uL (150-450); Red Blood Count 5.54 x10^6/uL (4.1-5.4); White Blood Count 22.5 x10^3/uL (4.0-10.5)
[2023-08-13 05:25] LABS: ALBUMIN 4.9 g/dL (3.5-5.0); ANION GAP 12.8 MEQ/L (5-15); BILIRUBIN,TOTAL 0.6 mg/dL (0.2-1.3); Creatinine 1 0.57 mg/dL (0.52-1.04); Potassium 3.5 mmol/L (3.5-5.1); Total Protein 9.3 g/dL (6.3-8.2)
[2023-08-13 05:38] LABS: Slide Review 1 YES
--- NOTE | 2023-08-13 05:47 | XRAY ---
CLINICAL HISTORY:ABD pain; vomiting COMPARISON:02/14/2022. TECHNIQUE:Contiguous axial images were obtained from the level of the diaphragm to the pubic symphysis without intravenous or oral contrast. Coronal and sagittal reconstructions were likewise performed and indicated to increase the sensitivity for detecting clinically relevant pathology. CT scan was performed according to ALARA (as low as reasonable achievable). FINDINGS: The visualized lung bases are clear. Evaluation of the abdominal and pelvic visceral organs is limited without intravenous contrast. The unenhanced liver, spleen, pancreas, and adrenal glands are grossly unremarkable. Gall bladder is not visualised with surgical clips in situ - post cholecystectomy status. Multiple air foci noted in subcutaneous tissue, intermuscular plane in right anterior abdominal wall and intraperitoneal location - likely post procedural. The kidneys are normal in size and attenuation without obvious calcification. There is no hydronephrosis or perinephric stranding. The ureters are normal in caliber. No adenopathy or fluid collections are seen. No evidence of focal or diffuse bowel wall thickening or evidence of bowel obstruction is seen. The aorta is normal in caliber. Mild fecal loading of colon. The urinary bladder is normal in contour. Pelvic viscera are grossly unremarkable. No aggressive appearing osseous lesions are identified. IMPRESSION: 1. Soft tissue emphysema and pneumoperitoneum - likely post operative. 2. Mild fecal loading of colon. 3. No other significant abnormality detected. The above are new findings. Electronically Signed by: Dr. Kee Rios MD. (08/13/2023 05:42:50 EST)
[2023-08-13 06:47] LABS: Appearance Clear (Clear); Bacteria None Seen /HPF (None Seen); Bilirubin Negative (Negative); Blood Trace (Negative); Epithelial Cells Few /HPF (None Seen); Glucose, Urine Negative (Negative); Hyaline Casts NONE SEEN /LPF (0-2); Ketones Trace (Negative); Leukocyte Esterase Negative (Negative); Nitrite Negative (Negative); Protein,Urine Dip 100 (Negative); Urobilinogen 0.2 mg/dL (0.2); WBC 0-2 /HPF (0-5)
[2023-08-13 06:52] LABS: ADD URINE CULTURE? YES (NO)
[2023-08-13 07:04] VITALS: O2SAT 98
[2023-08-13 08:02] VITALS: BP 159/98; PULSE 84; RESP 17
== END 2023-08-13 08:03 | disposition home or self-care (01) ==
LOC: ED 04:07
DX: G89.18 Other acute postprocedural pain (principal); K91.0 Vomiting following gastrointestinal surgery; I10 Essential (primary) hypertension; Z79.899 Other long term (current) drug therapy; Z72.0 Tobacco use
CPT/HCPCS: 36415; 74176; 80053; 81001; 82150; 83690; 85025; 87086; 96360; 96374; 96375; 99284; J1170

== ENCOUNTER 2024-10-23 18:22 | Emergency (ER) | payer MEDICAID, OTHER ==
--- NOTE | 2024-10-23 18:27 | ERPHSYRPT ---
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 Patient states that she was battling a pit bull who had her Chihuahua in her mouth. Unknown at this point if a police report was actually filed. Patient's tetanus status is not up-to-date. She is a daily smoker of tobacco cigarettes. Patient states she is allergic to penicillin but has had Keflex in the past without adverse effect. Patient has a history gastro esophageal reflux disease, anxiety, asthma, hypertension and bipolar disorder. She has not had a fever. She has no chest pain. She has no shortness of breath Timing/Duration: day(s) (3) Quality: painful Severity: moderate Location: hands (Bilateral hands right worse than left) Possible Causes: other (Dog bite) Associated Symptoms: denies symptoms Allergies/Adverse Reactions: Penicillins Allergy (Severe, Verified 10/23/24 18:27) anaphylaxis aspirin Allergy (Unknown, Verified 10/23/24 18:27) Home Medications: Glycopyrrolate 1 mg PO DAILY 01/30/22 [History] Hydroxyzine HCl 25 mg [Atarax 25 mg] 25 mg PO DAILY 01/30/22 [History] Omeprazole 20 mg PO BID 01/30/22 [History] Trazodone HCl 100 mg PO DAILY 01/30/22 [History] Bupropion HCl Xl 150 mg [Wellbutrin XL 150 MG] 150 mg PO DAILY 07/25/23 [History] Loratadine 10 mg [Claritin 10 mg] 10 mg PO DAILY 07/25/23 [History] Albuterol Common Canister [Ventolin Common Canister] 2 puff IH TID 08/02/23 [History] Hx Tetanus, Diphtheria Vaccination/Date Given: Yes (YES IN THE PAST 10 YEARS) Hx Influenza Vaccination/Date Given: No Hx Pneumococcal Vaccination/Date Given: No Travel Risk - International Travel Have you traveled outside of the country in past 3 weeks: No - Emerging Infectious Disease Are you exhibiting symptoms associated with any current EIDs: No - Review of Systems Constitutional: No Symptoms, No Fever Eyes: No Symptoms Ears, Nose, & Throat: No Symptoms Respiratory: No Symptoms Cardiac: No Symptoms Abdominal/Gastrointestinal: No Symptoms Genitourinary Symptoms: No Symptoms Musculoskeletal: Injury (Dog bite to bilateral hands) Skin: Cellulitis (Bilateral hands right side worse than left.) - Past Medical History Pertinent Past Medical History: Yes Neurological History: No Pertinent History ENT History: No Pertinent History Cardiac History: Hypertension Respiratory History: Asthma Endocrine Medical History: No Pertinent History Musculoskeletal History: No Pertinent History GI Medical History: No Pertinent History History: No Pertinent History Psycho-Social History: Bipolar, Depression Female Reproductive Disorders: Endometriosis - Past Surgical History Past Surgical History: Yes Neuro Surgical History: No Pertinent History Cardiac: No Pertinent History Respiratory: No Pertinent History Gastrointestinal: Cholecystectomy, Exploratory Laparoscopy Musculoskeletal: No Pertinent History Female Surgical History: Tubal Ligation Other Surgical History: hysterectomy partial - Female History Hx Last Menstrual Period: 01/25/14 - Social History Smoking Status: Current every day smoker How long have you smoked: 30 years Exposure to second hand smoke: Yes Drug Use: marijuana Patient Lives Alone: No - Nursing Vital Signs Nursing Vital Signs: Initial Vital Signs Temperature 98 F 10/23/24 18:30 Pulse Rate 90 10/23/24 18:30 Respiratory Rate 18 10/23/24 18:30 Blood Pressure 176/122 10/23/24 18:30 O2 Sat by Pulse Oximetry 99 10/23/24 18:30 Pain Scale Pain Intensity 7 - Physical Exam General Appearance: no apparent distress, alert, anxiety Eye Exam: PERRL/EOMI, eyes nml inspection Ears, Nose, Throat Exam: moist mucous membranes, other (edentulous) Neck Exam: normal inspection, non-tender, supple, full range of motion Respiratory Exam: airway intact, No chest tenderness, No respiratory distress Gastrointestinal/Abdomen Exam: No tenderness Pelvic Exam: not done Rectal Exam: not done Back Exam: normal inspection, normal range of motion, No CVA tenderness, No vertebral tenderness Extremity Exam: swelling (Right digits worse than left. No palmar involvement at this point. Cellulitis primarily digits of the right hand index and middle fingers), tenderness (Patient has tenderness to the digits on both of her hands where there are dorsal and palmar aspect dog bite sites. Nothing needs to be sewed. Patient is neurovascularly intact. At this point there does not seem to be involvement with the palm of her hand. Cellulitis right middle finger, swelling) Skin Exam: other (Dog bites to the digits of both hands.) Lymphatic Exam: No adenopathy SpO2 Interpretation: normal O2 Delivery: Room Air Ordered Tests: Active Orders 24 hr Category Date Time Status HAND (MINIMUM 3 VIEWS) Stat Exams 10/23/24 18:42 Completed HAND (MINIMUM 3 VIEWS) Stat Exams 10/23/24 18:43 Completed Medication Summary Discontinued Medications Generic Name Dose Route Start Last Admin Trade Name Fidelina PRN Reason Stop Dose Admin Ceftriaxone Sodium 1,000 mg 10/23/24 18:39 10/23/24 19:00 Ceftriaxone Sodium 1000 Mg Inj Vial IM 10/23/24 18:40 1,000 mg STAT ONE Administration Ceftriaxone Sodium Confirm 10/23/24 18:51 Ceftriaxone Sodium 1000 Mg Inj Vial Administered 10/23/24 18:52 Dose 1,000 mg .ROUTE .STK-MED ONE Clindamycin HCl 300 mg 10/23/24 18:39 10/23/24 18:56 Clindamycin Hcl 150 Mg Capsule PO 10/23/24 18:40 300 mg STAT ONE Administration Clindamycin HCl Confirm 10/23/24 18:50 Clindamycin Hcl 150 Mg Capsule Administered 10/23/24 18:51 Dose 300 mg .ROUTE .STK-MED ONE Diphtheria/Tetanus/Acell Pertussis 0.5 ml 10/23/24 18:38 10/23/24 18:57 Tdap --Diph,Pertuss(Acell),Tet Vac/Pf 0.5 Ml Vial IM 10/23/24 18:39 0.5 ml .ONCE ONE Administration Diphtheria/Tetanus/Acell Pertussis Confirm 10/23/24 18:51 Tdap --Diph,Pertuss(Acell),Tet Vac/Pf 0.5 Ml Vial Administered 10/23/24 18:52 Dose 0.5 ml IM .STK-MED ONE Doxycycline Hyclate 100 mg 10/23/24 18:39 10/23/24 18:55 Doxycycline Hyclate 100 Mg Tablet PO 10/23/24 18:40 100 mg STAT ONE Administration Doxycycline Hyclate Confirm 10/23/24 18:50 Doxycycline Hyclate 100 Mg Tablet Administered 10/23/24 18:51 Dose 100 mg .ROUTE .STK-MED ONE Lidocaine HCl Confirm 10/23/24 18:51 Lidocaine Hcl 1% 20 Ml Mdv 20 Ml Ml Administered 10/23/24 18:52 Dose 3 ml .ROUTE .STK-MED ONE - Progress Progress: unchanged, pain not gone completely, re-examined Progress Note: 10/23/24 18:49 My medical decision making of the assignment of low complexity of this patient's medical issue today is based on review of the patient's past medical history, review the patient's medication list, reviewed patient drug allergy list, history present illness and physical findings on examination. The workup in this patient will include x-rays of both hands. We will also provide the patient with an Adacel injection, IM injection of Rocephin, oral clindamycin and oral doxycycline. 10/23/24 19:37 Differential diagnosis includes but is not limited to fracture/dislocation bilateral hand digits, cellulitis, swelling bilateral hand digits The radiologist interpreted the following x-ray studies: Right hand x-ray is a normal x-ray of the hand. There is no acute fracture or dislocation. There are no significant soft tissue abnormalities. Left hand x-ray is normal. There are no acute fractures or dislocations. There is no significant soft tissue abnormality. Counseled pt/family regarding: diagnosis, need for follow-up, rad results Medical Desision Making - Independent Historian Additional History obtained from: Relative/friend - Diagnostic Testing Diagnostic test were ordered, analyzed, and reviewed by me: Yes Radiological Interpretation: Reviewed by me, Teleradiologist Report - Risk of complications The pt has a mod risk of morbidity or mortality based on: Need for prescription drug management - Departure Departure Disposition: Home Clinical Impression: Cellulitis of hand, Dog bite of hand Condition: Stable Critical Care Time: No Referrals: MILTON DUPONT NP [Primary Care Provider] - Follow up/PCP as directed Additional Instructions: Soak both hands in warm soapy water 3 times a day. Take your antibiotics as prescribed. Use Tylenol and ibuprofen for pain control if there are no contraindications to do so. Return tomorrow, 10/24/2024, for recheck of your wounds. Prescriptions: Clindamycin HCl 150 mg [Cleocin 150 mg Capsule] 2 cap PO QID #56 cap Doxycycline Hyclate 100 mg [Vibramycin 100 MG] 100 mg PO BID #14 tab
[2024-10-23] MEDS ORDERED: Vibramycin 100 MG ONE (18:50)
[2024-10-23] MEDS ORDERED: CLEOCIN 150 MG CAPSULE ONE (18:50)
[2024-10-23 18:51] VITALS: RESP 18; TEMP 98
[2024-10-23] MEDS ORDERED: Rocephin 1000 MG INJ ONE (18:51)
[2024-10-23] MEDS ORDERED: Adacel Vial IM ONE (18:51)
[2024-10-23] MEDS ORDERED: XYLOCAINE 1% HCL 20 ML MDV ONE (18:51)
[2024-10-23] MEDS: Vibramycin 100 MG PO ONE (18:55)
[2024-10-23] MEDS: CLEOCIN 150 MG CAPSULE PO ONE (18:56)
[2024-10-23] MEDS: Adacel Vial IM ONE (18:57)
[2024-10-23] MEDS: Rocephin 1000 MG INJ IM ONE (19:00)
--- NOTE | 2024-10-23 19:31 | XRAY ---
CLINICAL HISTORY: Dog bite, finger swelling COMPARISON: None. TECHNIQUE: X-ray images of the left hand were obtained in [place], lateral, and oblique projections. FINDINGS: Bone Structure: The bone structure is normal and aligned. No evidence of fracture or dislocation. No osseous lesions or abnormalities identified. Joint Spaces: Joint spaces are normal. No evidence of joint effusion or subluxation. Soft Tissues: Soft tissues appear normal and unremarkable. No soft tissue swelling, calcifications, or foreign bodies were noted. Additional Findings: No signs of osteoarthritis, bone spurs, lytic or sclerotic lesions. IMPRESSION: Normal X-ray of the left hand. No evidence of acute fracture, dislocation, or significant soft tissue abnormalities. Disclaimer: A subtle bone abnormality or fracture may not be readily apparent on X-rays, thus, clinical correlation and further imaging, including follow-up CT, MRI, or follow-up X-rays, are advised as needed. Electronically Signed by: Ann Mccann MD. (10/23/2024 19:27:12 EDT)
--- NOTE | 2024-10-23 19:33 | XRAY ---
CLINICAL HISTORY: Dog bite, finger swelling COMPARISON: None. TECHNIQUE: X-ray images of the right hand were obtained in [place], lateral, and oblique projections. FINDINGS: Bone Structure: The bone structure is normal and aligned. No evidence of fracture or dislocation. No osseous lesions or abnormalities were identified. The fourth finger rings limiting visualization. Joint Spaces: Joint spaces are normal. No evidence of joint effusion or subluxation. Soft Tissues: Soft tissues appear normal and unremarkable. No soft tissue swelling, calcifications, or foreign bodies were noted. Additional Findings: No signs of osteoarthritis, bone spurs, lytic or sclerotic lesions. IMPRESSION: Normal X-ray of the right hand. No evidence of acute fracture, dislocation, or significant soft tissue abnormalities. Disclaimer: A subtle bone abnormality or fracture may not be readily apparent on X-rays, thus, clinical correlation and further imaging, including follow-up CT, MRI, or follow-up X-rays, are advised as needed. Electronically Signed by: Ann Mccann MD. (10/23/2024 19:28:20 EDT)
[2024-10-23 19:47] VITALS: BP 165/116; PULSE 82; O2SAT 100
== END 2024-10-23 19:47 | disposition home or self-care (01) ==
LOC: ED 18:22
DX: S60.572A Other superficial bite of hand of left hand, initial encounter (principal); S60.571A Other superficial bite of hand of right hand, initial encounter; L03.114 Cellulitis of left upper limb; L03.113 Cellulitis of right upper limb; W54.0XXA Bitten by dog, initial encounter; I10 Essential (primary) hypertension; Z79.899 Other long term (current) drug therapy; Z72.0 Tobacco use; Z23 Encounter for immunization
CPT/HCPCS: 73130; 90471; 90715; 96372; 99284; J0696; A9270-GY